=== PATIENT | female | born 1950 | race Caucasian/White ===

== ENCOUNTER 2020-09-02 04:17 | Day surgery (SDC) | payer OTHER ==
[2020-09-01 12:16] VITALS: BMI 27.1
[2020-09-02] MEDS ORDERED: ROPIVACAINE HCL 0.5% 30ML VIAL ONE (07:24)
[2020-09-02] MEDS ORDERED: MIDAZOLAM HCL 2 MG/2 ML SINGLE DOSE VIAL ONE ×2 (07:25)
[2020-09-02] MEDS ORDERED: PROPOFOL 20 ML ONE ×2 (08:06)
[2020-09-02] MEDS ORDERED: LIDOCAINE HCL/PF 2% SDV 5ML VIAL ONE (08:07)
[2020-09-02] MEDS ORDERED: SODIUM CHLORIDE 0.9% P/F 10 ML VIAL IJ ONE (08:11)
[2020-09-02] MEDS ORDERED: ceFAZolin SODIUM 1 GM VIAL ONE (08:11)
[2020-09-02] MEDS ORDERED: ceFAZolin 2 GRAM PREMIX BAG IVPB ONE (08:12)
[2020-09-02] MEDS ORDERED: ONDANSETRON 4 MG/2 ML VIAL ONE (08:14)
[2020-09-02] MEDS ORDERED: DEXAMETHASONE SOD PHOSPHATE 4 MG/1 ML VIAL ONE (08:14)
[2020-09-02] MEDS ORDERED: PROMETHAZINE HCL 25 MG/1 ML VIAL IVPB PRN (09:39)
[2020-09-02] MEDS ORDERED: ONDANSETRON 4 MG/2 ML VIAL IVPUSH PRN (09:39)
[2020-09-02] MEDS ORDERED: LACTATED RINGERS SOLUTION 1,000 ML IV SCH (09:45)
[2020-09-02 11:31] VITALS: PULSE 80
[2020-09-02 13:42] VITALS: BP 111/79; TEMP 96.9
== END 2020-09-02 12:15 | disposition home or self-care (01) ==
LOC: JASU-SURG 04:17
PROVIDERS: ATTEND Orthopaedic Surgery
PROC: 0PBB4ZZ Excision of Left Clavicle, Percutaneous Endoscopic Approach (ICD-10-PCS; 2020-09-02)
PROC: 0RNK4ZZ Release Left Shoulder Joint, Percutaneous Endoscopic Approach (ICD-10-PCS; principal; 2020-09-02 08:00)
DX: M75.42 Impingement syndrome of left shoulder (principal); M75.02 Adhesive capsulitis of left shoulder
CPT/HCPCS: 94760

== ENCOUNTER 2021-03-29 20:41 | Emergency (ER) | payer OTHER ==
[2021-03-29 20:49] VITALS: BP 159/95; PULSE 77; TEMP 97.8; BMI 26.2
[2021-03-29] MEDS ORDERED: SODIUM CHLORIDE 0.9% 500 ML INFUS.BAG IV ONE (21:21)
[2021-03-29] MEDS ORDERED: ACETAMINOPHEN 1000 MG/100 ML VIAL (NON FORMULARY) IVPB ONE (21:21)
[2021-03-29] MEDS ORDERED: ACETAMINOPHEN INJECTION 100 ML IVPB ONE (21:29)
[2021-03-29 21:59] LABS: BASO % 0.7 % (0-2.0); EOS % 2.6 % (0-4.5); HEMATOCRIT 40.2 % (32.4-45.2); HEMOGLOBIN 13.7 GM/dL (10.7-15.3); LYMPH % 25.3 % (8-40); MEAN CELL VOLUME 85.4 fl (80-96); MEAN PLT VOLUME 9.3 fl (7.5-11.1); MONO % 6.5 % (3.8-10.2); NEUT % 64.9 % (42.8-82.8); PLATELET COUNT 167 10^3/uL (134-434); RBC 4.71 M/mm3 (3.60-5.2); RDW 13.3 % (11.6-15.6); WHITE BLOOD COUNT 7.6 K/mm3 (4.0-10.0)
[2021-03-29 22:10] LABS: INR 0.87 (0.83-1.09); PROTHROMBIN TIME (PATIENT) 10.8 SEC (9.7-13.0)
[2021-03-29 22:12] LABS: ACTIVATED PTT 28.3 SECONDS (25.2-36.5)
[2021-03-29 22:16] LABS: BLOOD UREA NITROGEN 18.9 mg/dL (7-18); CALCIUM 9.1 mg/dL (8.5-10.1)
[2021-03-29 22:19] LABS: CREATININE 0.9 mg/dL (0.55-1.3)
[2021-03-29 22:21] LABS: BILIRUBIN,TOTAL 0.4 mg/dL (0.2-1); TOT PROT 7.4 g/dl (6.4-8.2)
[2021-03-29] MEDS ORDERED: morphine CARPU-JECT 4 MG/1 ML DISP.SYRIN IVPUSH ONE (22:45)
[2021-03-29] MEDS ORDERED: ONDANSETRON 4 MG/2 ML VIAL IVPUSH ONE (22:45)
[2021-03-29] MEDS ORDERED: ONDANSETRON 4 MG/2 ML VIAL ONE (22:47)
[2021-03-29] MEDS ORDERED: morphine SULFATE 4 MG/ML VIAL ONE (22:47)
[2021-03-30] MEDS ORDERED: KETOROLAC TROMETHAMINE 15 MG/ML VIAL IVPUSH ONE (01:38)
[2021-03-30] MEDS ORDERED: KETOROLAC TROMETHAMINE 15 MG/ML VIAL ONE (01:42)
[2021-03-30 02:53] LABS: URINE APPEARANCE CLEAR; URINE BILIRUBIN NEGATIVE (NEGATIVE); URINE COLOR YELLOW; URINE GLUCOSE (UA) NEGATIVE (NEGATIVE); URINE KETONE NEGATIVE (NEGATIVE); URINE LEUK ESTERASE NEGATIVE (NEGATIVE); URINE NITRITE NEGATIVE (NEGATIVE); URINE PROTEIN NEGATIVE (NEGATIVE); URINE UROBILINOGEN 0.2 mg/dL (0.2-1.0)
[2021-03-30] MEDS ORDERED: diazePAM 5 MG TABLET PO ONE (02:55)
[2021-03-30] MEDS ORDERED: DEXAMETHASONE SOD PHOSPHATE 10 MG/1 ML VIAL IVPUSH ONE (02:55)
[2021-03-30] MEDS ORDERED: diazePAM 5 MG TABLET ONE (03:13)
[2021-03-30] MEDS ORDERED: DEXAMETHASONE SOD PHOSPHATE 10 MG/1 ML VIAL ONE (03:13)
== END 2021-03-30 04:25 | disposition home or self-care (01) ==
LOC: JER 20:41
PROC: 3E033NZ Introduction of Analgesics, Hypnotics, Sedatives into Peripheral Vein, Percutaneous Approach (ICD-10-PCS; principal; 2021-03-29)
PROC: 3E033GC Introduction of Other Therapeutic Substance into Peripheral Vein, Percutaneous Approach (ICD-10-PCS; 2021-03-29)
PROC: 3E033GC Introduction of Other Therapeutic Substance into Peripheral Vein, Percutaneous Approach (ICD-10-PCS; 2021-03-29)
PROC: 3E033GC Introduction of Other Therapeutic Substance into Peripheral Vein, Percutaneous Approach (ICD-10-PCS; 2021-03-29)
PROC: 3E0333Z Introduction of Anti-inflammatory into Peripheral Vein, Percutaneous Approach (ICD-10-PCS; 2021-03-29)
PROC: 3E033NZ Introduction of Analgesics, Hypnotics, Sedatives into Peripheral Vein, Percutaneous Approach (ICD-10-PCS; 2021-03-29)
DX: M54.5 Low back pain (principal)
CPT/HCPCS: 36415; 71046-TC-FY; 74177-TC; 80053; 81003; 83605; 85025; 85610; 85730; 86850; 86900; 86901; 93005; 93010; 99285-25; J0131; J1100

== ENCOUNTER 2021-04-05 04:27 | Day surgery (SDC) | payer OTHER ==
[2021-04-01 11:24] VITALS: BMI 26.5
[2021-04-05] MEDS ORDERED: MIDAZOLAM HCL 2 MG/2 ML SINGLE DOSE VIAL ONE ×3 (08:34→10:08)
[2021-04-05] MEDS ORDERED: DEXAMETHASONE SOD PHOSPHATE 10 MG/1 ML VIAL ONE (08:35)
[2021-04-05] MEDS ORDERED: PROPOFOL 20 ML ONE ×2 (10:08)
[2021-04-05] MEDS ORDERED: ceFAZolin SODIUM 1 GM VIAL IVPB ONE (10:50)
[2021-04-05] MEDS ORDERED: oxyCODONE HCL 5 MG TABLET PO PRN (13:01)
[2021-04-05] MEDS ORDERED: ONDANSETRON 4 MG/2 ML VIAL IVPUSH PRN (13:01)
[2021-04-05 13:12] VITALS: TEMP 97
[2021-04-05] MEDS ORDERED: LACTATED RINGERS SOLUTION 1,000 ML IV SCH (13:15)
[2021-04-05 13:53] VITALS: BP 156/86; PULSE 68
== END 2021-04-05 15:16 | disposition home or self-care (01) ==
LOC: JASU-SURG 04:27
PROVIDERS: ATTEND Orthopaedic Surgery
PROC: 0PB94ZZ Excision of Right Clavicle, Percutaneous Endoscopic Approach (ICD-10-PCS; 2021-04-05)
PROC: 0RNJ4ZZ Release Right Shoulder Joint, Percutaneous Endoscopic Approach (ICD-10-PCS; principal; 2021-04-05 09:00)
PROC: 0LQ14ZZ Repair Right Shoulder Tendon, Percutaneous Endoscopic Approach (ICD-10-PCS; 2021-04-05 09:00)
DX: M75.41 Impingement syndrome of right shoulder (principal); M75.101 Unspecified rotator cuff tear or rupture of right shoulder, not specified as traumatic
CPT/HCPCS: 94760; J1100

== ENCOUNTER 2021-08-09 13:48 | Emergency (ER) | payer OTHER ==
[2021-08-09 14:37] VITALS: BP 120/82; PULSE 86; TEMP 97.9; BMI 26.2
[2021-08-09] MEDS ORDERED: MECLIZINE HCL 25 MG TABLET (FP) PO ONE (17:23)
[2021-08-09] MEDS ORDERED: ACETAMINOPHEN 650 MG/20.3 ML ORAL SOLUTION (CUPS) PO ONE (17:36)
[2021-08-09] MEDS ORDERED: ACETAMINOPHEN 325 MG TABLET (FP) ONE (17:41)
== END 2021-08-09 19:48 | disposition home or self-care (01) ==
LOC: JER 13:48
DX: R51.9 Headache, unspecified (principal); I10 Essential (primary) hypertension
CPT/HCPCS: 70450-TC; 99284-25